=== PATIENT | male | born 1950 | race Caucasian/White ===

== ENCOUNTER → 2023-06-07 12:47 | Outpatient (CLI) | payer MEDICARE, OTHER, SELFPAY ==
--- NOTE | 2023-06-07 12:52 | CA_ITS ---
APPROVED REPORT EXAM: Comprehensive 2D, Doppler, and color-flow Echocardiogram [employer]wear Sales Representative: Manju Collado RT(R) Ht: 6 ft 3 in Wt: 240lbs BSA: 2.37 BP: 152/76 mmHg Indications: murmur, HTN 2D Dimensions LVOT 2.02 cm (M/F) 1.5-2.5 LVEF ([facility]ler's) 50.10 % M: 52 - 72 LV Volume 103.80 mL M: 62 - 150 LV Volume Index 43.80 mL/m2 M: 34 - 74 LA Volume 36.20 mL LA Volume Index 15.27 mL/m2 (M/F) 16-34 M-Mode Dimensions RVDd 2.97 cm (0.9-2.6) LA Diam 3.51 cm (1.9-4.0) LVDd 5.25 cm (3.5-5.7) Ao Diam 3.15 cm (2.0-3.7) LVDs 3.98 cm (3.5-5.7) IVSd 0.93 cm (0.6-1.1) PWd 1.14 cm (0.6-1.1) EF (Teich) 47.70% FS 24.20% EDV (Teich) 132.40 mL ESV (Teich) 69.20 mL LV Diastology E Decel Time 150.00 (160-240 msec) E/A Ratio 0.7 MED E' 5.90 (< 7 cm/sec) E'/MED E' Ratio 10.83 (>14) LAT E' 8.60 (<10 cm/sec) E/LAT E' Ratio 7.43 (>14) Mitral Valve MV E Max Bryn. 64.00 (40-130 cm/s) MV A Velocity 94.00 (40-130 cm/s) E/A Ratio 0.68 MV Decel. Time 150.00 (160-240 ms) MV PHT 44.00 ms Left Ventricle The left ventricle is normal size. The left ventricular systolic function is normal. The left ventricular ejection fraction is within the normal range. There is normal left ventricular wall thickness. There is normal LV segmental wall motion. Transmitral Doppler flow pattern suggests impaired LV relaxation. LVEF is 60%. Right Ventricle The right ventricle is normal size. The right ventricular systolic function is normal. Atria The left atrium size is normal. The right atrium size is normal. There is no Doppler evidence of interatrial shunt. Aortic Valve The aortic valve opens well. There is no aortic valvular stenosis. Trace aortic regurgitation. Mitral Valve The mitral valve leaflets are mildly thickened. No evidence of mitral valve stenosis. No mitral Regurgitation. Tricuspid Valve The tricuspid valve leaflets are thin and pliable. Trace tricuspid regurgitation. The TR jet is insufficient to estimate RVSP. Pulmonic Valve The pulmonary valve is normal in structure. Trace pulmonic regurgitation. Great Vessels The aortic root is normal in size. The ascending aorta is mildly dilated. Ascending aorta measures 4.0 cm. IVC is normal in size and collapses >50% with inspiration. Pericardium There is no pericardial effusion. Other Information Study Quality: Adequate Conclusion Normal biventricular systolic function. No significant valvular disease. Mildly dilated ascending aorta 4.0 cm. Electronically signed by : Sridevi York, 06/07/2023 22:31:22
== END ==
PROVIDERS: PCP Nurse Practitioner Family; Visit Provider Nurse Practitioner Family
DX: R01.1 Cardiac murmur, unspecified (principal)
CPT/HCPCS: 93306

== ENCOUNTER 2025-03-07 15:21 | Outpatient (CLI) | payer MEDICARE, OTHER, SELFPAY ==
[2025-03-07 19:03] LABS: Basophils # 0.1 K/mm3 (0-0.2); Basophils % 1.3 % (0.1-2.0); Eosinophils # 0.2 Kmm3 (0.0-0.4); Eosinophils % 2.4 % (0.1-12.0); Hematocrit 46.3 % (42.0-52.0); Hemoglobin 15.2 g/dL (14.1-18.0); Immature Granulocytes # 0.02 10^3uL; Immature Granulocytes % 0.3 %; Lymphocytes # 2.7 K/mm3 (0.7-4.5); Lymphocytes % 38.2 % (10-50); Mean Corpuscular HGB Conc 32.8 g/dL (31.8-35.4); Mean Corpuscular Hemoglobin 29.9 pg (27.0-31.2); Mean Corpuscular Volume 91.1 fl (80-94); Mean Platelet Volume 10.8 fl (7.4-10.4); Monocytes # 0.8 K/mm3 (0.1-1.0); Monocytes % 11.7 % (1.7-9.3); Neutrophils # 3.3 K/mm3 (1.8-7.8); Neutrophils % 46.1 % (37.0-80.0); Nucleated Red Blood Cells # 0 10^3/uL; Nucleated Red Blood Cells % 0 %; Platelet Count 281 K/mm3 (142-424); Red Blood Count 5.08 M/mm3 (4.60-6.20); Red Cell Distribution Width 12.8 % (11.5-17.5); Red Cell Distribution Width-SD 42.9 fL; White Blood Count 7.1 K/mm3 (4.8-10.8)
[2025-03-07 19:29] LABS: Alanine Aminotransferase 35 U/L (12-78); Albumin Level 4.6 g/dl (3.5-5.0); Albumin/Globulin Ratio 1.8 (1.1-1.8); Alkaline Phosphatase 69 U/L (38-126); Anion Gap 8.2 mEq/L (5-15); Aspartate Amino Transferase 29 U/L (17-59); Bilirubin,Total 0.5 mg/dl (0.2-1.3); Blood Urea Nitrogen 22 mg/dl (9-20); Calcium 9.2 mg/dl (8.4-10.2); Carbon Dioxide 27 mmol/L (22.0-30.0); Chloride 105 mmol/L (98-107); Chol/HDL Ratio 5.9 (1-3.5); Cholesterol 240 mg/dl (140-200); Estimated Glomerular Filt Rate 83 ml/min (>60); GFR (African American) 100 ML/MIN (>60); Globulin 2.5 g/dL (1.3-3.2); Glucose 98 mg/dl (74-100); HDL Cholesterol 41 mg/dl (40-60); Potassium 4.2 mmoL/L (3.5-5.1); Sodium 136 mmol/L (136-145); Total Protein,Serum 7.1 g/dl (6.3-8.2); Triglycerides 322 mg/dl (30-150); VLDL Cholesterol 64 mg/dL (0-40)
[2025-03-07 19:41] LABS: Direct LDL Cholesterol 114.64 mg/dL (100-129)
[2025-03-07 19:46] LABS: 25-OH Vitamin D, Total 27.6 ng/mL (30-100)
[2025-03-07 20:03] LABS: Prostate Specific Ag Screen 8.4 ng/ml (0.0-4.0); Thyroid Stimulating Hormone 7.57 uIU/mL (0.465-4.68)
== END 2025-03-07 23:59 | disposition home or self-care (01) ==
LOC: LAB.DROPOF 03-08 08:28
PROVIDERS: PCP Nurse Practitioner Family; Visit Provider Nurse Practitioner Family
DX: Z12.5 Encounter for screening for malignant neoplasm of prostate (principal); I10 Essential (primary) hypertension; E55.9 Vitamin D deficiency, unspecified
CPT/HCPCS: 80053; 80061; 82306; 84443; 85025; G0103